=== PATIENT | male | born 1945 | race Caucasian/White ===

== ENCOUNTER 2016-08-29 13:43 | Emergency (ER) | payer OTHER ==
[~2016-08-29] VITALS: Ht 160 cm; Wt 73.5 kg
[2016-08-29 14:17] LABS: HEMATOCRIT 43.8 % (38.0-50.0); MCH 29.6 PG (29.0-34.0); MCHC 33.1 G/DL (30.0-36.0); MCV 89.4 FL (86-99); MEAN PLAT.VOLUME 9.6 uM^3 (9.0-12.4); PLATELET COUNT 246 K/uL (156-360); RBC DIS.WIDTH-CV 13.2 % (11.8-14.6); RBC DIS.WIDTH-SD 43.3 % (39-53); WHITE BLOOD COUNT 5.4 K/uL (4.1-10.2)
[2016-08-29 14:24] LABS: CHLORIDE 111 mEq/L (99-109); POTASSIUM 3.9 mEq/L (3.7-5.4); SODIUM 140 mEq/L (136-147)
[2016-08-29 14:25] LABS: PROTHROMBIN TIME 10.5 (9.2-11.2); PTT 26.9 (25-32)
[2016-08-29 14:26] LABS: GLUCOSE 123 mg/dL (70-99)
[2016-08-29 14:28] LABS: ANION GAP 9 MEQ/L (2-14)
[2016-08-29 14:31] LABS: UREA NITROGEN (BUN) 11 mg/dL (9-23)
[2016-08-29 14:37] LABS: GFR ESTIMATE (CALCULATED) > 59 mL/min/
[2016-08-29] MEDS ORDERED: AUGMENTIN875 MG PO (15:49)
[2016-08-29] MEDS ORDERED: ZOFRAN ODT4 MG PO (15:49)
[2016-08-29] MEDS ORDERED: PERCOCET 5/31 TABLET PO (15:49)
[2016-08-29 17:32] VITALS: BP 140/90
== END 2016-08-29 17:32 | disposition home or self-care (01) ==
LOC: EME 13:43
PROVIDERS: Nurse Practitioner Family
DX: S62.633B Displaced fracture of distal phalanx of left middle finger, initial encounter for open fracture (principal); S63.293A Dislocation of distal interphalangeal joint of left middle finger, initial encounter; W31.89XA Contact with other specified machinery, initial encounter
CPT/HCPCS: 73130; 73140; 80048; 85027; 85610; 85730; 99281; 99285; J3010; J7030; S0020